=== PATIENT | female | born 1955 | race Caucasian/White ===

== ENCOUNTER 2017-02-23 15:03 | Outpatient (CLI) | payer OTHER ==
--- NOTE | 2017-02-24 09:30 | MRI ---
MRI LEFT KNEE WITHOUT CONTRAST: HISTORY: M25.562. Meniscus tear. COMPARISON: None. FINDINGS: Medial Meniscus: There is undersurface flap tear of the body and posterior horn medial meniscus exte nding to the root attachment. There is 2 mm gutter extrusion of the flap fragment. Lateral Meniscus: Intact. The ACL, PCL, MCL, LCL are all intact. Extensor Mechanism: Quadriceps tendon, patella, and patellar tendon are all intact. Cartilage and Patellar Femoral Compartment: Intact. Medial Compartment: Minimal chondral loss of weightbearing surface medial femoral condyle. Lateral Compartment: Intact. Bones: No fracture. No malalignment. No stress edema. Small medial compartment osteophytes. Muscles: Muscle signal and bulk is normal. There is trace fluid within the pes anserine bursa. IMPRESSION: 1. Undersurface flap tear finding of posterior horn medial meniscus extensor radial attachment with 2 mm medial gutter extrusion of the flap fragment. 2. Mild pes anserine bursitis. 3. 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 POS: [facility]
== END 2017-02-23 15:04 | disposition home or self-care (01) ==
LOC: SCSMRI 15:03
PROVIDERS: ATTEND Orthopaedic Surgery
DX: S83.242A Other tear of medial meniscus, current injury, left knee, initial encounter (principal); M70.52 Other bursitis of knee, left knee; M94.262 Chondromalacia, left knee

== ENCOUNTER 2017-12-14 17:00 | Outpatient (CLI) | payer OTHER | END 2017-12-14 17:01 | disposition home or self-care (01) | LOC: SLEEPLAB 17:00 | PROVIDERS: ATTEND Internal Medicine | DX: G47.33 Obstructive sleep apnea (adult) (pediatric) (principal); G47.31 Primary central sleep apnea; R53.83 Other fatigue; Z68.30 Body mass index [BMI] 30.0-30.9, adult | CPT/HCPCS: 95806 ==

== ENCOUNTER 2018-01-24 20:30 | Outpatient (CLI) | payer OTHER | END 2018-01-24 20:31 | disposition home or self-care (01) | LOC: SLEEPLAB 20:30 | PROVIDERS: ATTEND Internal Medicine | DX: G47.33 Obstructive sleep apnea (adult) (pediatric) (principal); G47.10 Hypersomnia, unspecified; R06.83 Snoring; E66.9 Obesity, unspecified; Z68.30 Body mass index [BMI] 30.0-30.9, adult | CPT/HCPCS: 95811 ==

== ENCOUNTER 2018-01-25 13:34 | Outpatient (CLI) | payer OTHER ==
[2018-01-25 14:30] LABS: #Eosinphils 0.1 thou/uL (0.0-0.7); #Lymphocytes 2.3 thou/uL (1.20-3.40); #Monocytes 0.5 thou/uL (0.11-0.59); #Neutrophils 3.4 thou/uL (1.40-6.50); %Basophils 0.4 % (0.0-1.0); %Eosinophils 2.2 % (0.0-10.0); %Lymphocytes 36.3 % (21.0-51.0); %Monocytes 7.4 % (0.0-10.0); %Neutrophils 53.6 % (42.0-75.0); Hemoglobin 12.9 g/dL (12.0-16.0); Mean Corpuscular HGB CONC 33.5 g/dL (32.0-36.0); Mean Corpuscular Hemoglobin 28.6 pg (27.0-31.0); Mean Corpuscular Volume 85.3 fL (78.0-98.0); Mean Platelet Volume 6.8 fL (7.4-10.4); Platelet Count 253 thou/uL (130-400); Red Blood Cell (RBC) Count 4.52 mill/uL (4.20-5.40); White Blood Cell (WBC) Count 6.3 thou/uL (4.8-10.8)
[2018-01-25 14:46] LABS: Anion Gap 14 mmol/L (10-20); BUN (Urea Nitrogen) 11 mg/dL (9.8-20.1); Calc. Creatinine Clearance 0 mL/min (70-130); Calcium 9.3 mg/dL (7.8-10.44); Carbon Dioxide 26 mmol/L (23-31); Chloride 101 mmol/L (98-107); Estimated GFR-MDRD 69; Glucose 162 mg/dL (80-115); Potassium 3.8 mmol/L (3.5-5.1); Sodium 137 mmol/L (136-145)
--- NOTE | 2018-01-25 17:30 | EKG ---
Test Reason : Blood Pressure : / mmHG Vent. Rate : 068 BPM Atrial Rate : 068 BPM P-R Int : 182 ms QRS Dur : 080 ms QT Int : 454 ms P-R-T Axes : 065 038 072 degrees QTc Int : 482 ms Normal sinus rhythm Normal ECG When compared with ECG of 14-AUG-2016 11:17, No significant change was found Confirmed by MILAGROS CARPENTER ([id number]) on 01/25/2018 5:30:14 PM Referred By: IMTIAZ Confirmed By:MILAGROS CARPENTER
== END 2018-01-25 13:35 | disposition home or self-care (01) ==
LOC: LABBT 13:34
PROVIDERS: ATTEND Orthopaedic Surgery
DX: Z01.818 Encounter for other preprocedural examination (principal); S83.242A Other tear of medial meniscus, current injury, left knee, initial encounter
CPT/HCPCS: 80048; 85025; 93005; 93010

== ENCOUNTER 2018-01-27 08:03 | Day surgery (SDC) | payer OTHER ==
[2018-01-25 14:20] VITALS: BMI 29.2
--- NOTE | 2018-01-26 14:44 | HP ---
HISTORY OF PRESENT ILLNESS: The patient is a 62-year-old female, who has a several month history of left knee pain and sensation of instability without specific injury. she has had persistent symptoms despite rest, restriction of activities, and use of inflammatory medications. She thinks her symptoms are identical to those she had on her right knee prior to arthroscopic meniscectomy several months ago. PAST MEDICAL HISTORY: Past history is as noted above. She is otherwise in good health. She has a history of anxiety, hypothyroidism, type 2 diabetes, and reflux. CURRENT MEDICATIONS: Her current medications include 1. Celexa. 2. Nexium. 3. Fluticasone. 4. L-thyroxine. 5. Valtrex. 6. Zetia. 7. Tradjenta. ALLERGIES: SHE IS ALLERGIC TO TYLENOL NO. 3 AND SIMVASTATIN. FAMILY HISTORY: Otherwise unremarkable. SOCIAL HISTORY: Otherwise unremarkable. REVIEW OF SYSTEMS: Otherwise unremarkable. PHYSICAL EXAMINATION: GENERAL: Reveals a healthy female. HEENT: Unremarkable. NECK: Supple. CHEST: Clear. HEART: Regular rate and rhythm. ABDOMEN: Soft and nontender. PELVIC: Deferred. RECTAL: Deferred. BREASTS: Deferred. EXTREMITIES: Pertinent findings are related to the left knee. There is no definite effusion. There is normal alignment. There is tenderness over the medial joint line. Range of motion is 3 to 115 degrees. There is pain with further flexion. There is pain with Leidy maneuver. NEUROVASCULAR: Intact. DIAGNOSTIC STUDIES: X-rays of the left knee reveals slight medial joint space narrowing. MRI scan of the left knee reveals an undersurface flap tear of the posterior horn of the medial meniscus and mild degenerative changes. IMPRESSION: Internal derangement of left knee with medial meniscal tear and possible component of degenerative joint disease. PLAN: Plan is arthroscopy of the left knee with partial medial meniscectomy and/or debridement and shaving. The nature of the surgery and length of recovery and potential complications such as infection, loss of motion, incomplete relief, thromboembolic phenomenon, neurovascular injury, recurrent tear, posttraumatic and need for additional treatment and repeat surgery have been discussed in detail. Job ID: [id number]
[2018-01-27] MEDS ORDERED: CEFAZOLIN 2 GM/50 ML BAG ONE (10:12)
[2018-01-27] MEDS ORDERED: Bupivacaine HCl 0.5%/Epinephrine 1:200,000/PF 30 ml Vial ONE (11:13)
[2018-01-27] MEDS ORDERED: Fentanyl 100 MCG/2 ML VIAL ONE (11:25)
[2018-01-27] MEDS ORDERED: Morphine 2 MG/ML SYRINGE ONE ×2 (12:54→13:05)
[2018-01-27] MEDS ORDERED: traMADol HCl 50 MG TAB ONE (13:38)
--- NOTE | 2018-01-27 15:46 | OP ---
DATE OF PROCEDURE: 01/27/2018 ANESTHESIA: General. PREOPERATIVE DIAGNOSES: Medial meniscal tear and degenerative joint disease, left knee. POSTOPERATIVE DIAGNOSES: Medial meniscal tear and degenerative joint disease, left knee. PROCEDURES PERFORMED: Arthroscopy, left knee and partial medial meniscectomy. OPERATIVE FINDINGS: Examination under anesthesia revealed the knee to be stable. At arthroscopy, there was mild grade 1 and very early grade 2 changes of the patella, no areas needed shaving. There was a complex tear of the posterior horn of the medial meniscus with a large undersurface flap component. There was diffuse grade 2 and early grade 3 changes of the weightbearing surface of the medial femoral condyle. No evidence of exposed bone. ACL was intact. Lateral compartment was normal. There was some fraying of the free border of the lateral meniscus. The body of the meniscus is intact and I elected to leave this alone. DESCRIPTION OF PROCEDURE: After satisfactory anesthesia was induced in supine position, the patient was placed on leg espinosa and prepped and draped in routine manner. The left leg was elevated and exsanguinated with an Esmarch bandage and the tourniquet inflated to 300 mmHg. Alexus arthroscope was introduced into the anterolateral portal and probed through the anteromedial portal and inflow and outflow accomplished through the scope using a Startlocal arthroscopy and pump. Arthroscopy was carried out and the above findings were noted. All findings were documented with the video printer and hard copies were made. The posterior horn of the medial meniscus was debrided with the use of basket forceps and motorized shaver, and the remaining rim balanced and probed and found to be stable. There was still intact rim of 3 to 4 mm. A portion of medial femoral condyle was debrided with a motorized shaver of all exposed fibrillated cartilage. The scope was then introduced into the anteromedial portal. All compartments were visualized and no additional pathology found. The knee was copiously irrigated through the scope and all instruments were then withdrawn. 20 mL of 0.5% Marcaine with epinephrine was instilled into the knee joint and additional 10 mL injected about the portal sites. Portal sites were closed with 3-0 nylon and a sterile bulky compressive dressing was applied. The tourniquet deflated after 19 minutes. The foot promptly pinked up, and the patient was awakened and taken from the operating room in stable condition. There were no apparent intraoperative complications. The estimated blood loss was negligible. The patient will be discharged home in satisfactory condition to use ice, elevations, use of crutches. Home exercise program with the Physical Therapy Department. She was given written wound care instructions and has tramadol at home for pain. She will be rechecked in my office in approximately 2 weeks or sooner if any problems prior to that time. Job ID: [id number]
== END 2018-01-27 14:45 ==
LOC: SDC 08:03
PROVIDERS: ATTEND Orthopaedic Surgery
PROC: 0SBD4ZZ Excision of Left Knee Joint, Percutaneous Endoscopic Approach (ICD-10-PCS; principal; 2018-01-27)
DX: S83.232A Complex tear of medial meniscus, current injury, left knee, initial encounter (principal); M17.12 Unilateral primary osteoarthritis, left knee; F41.9 Anxiety disorder, unspecified; E03.9 Hypothyroidism, unspecified; E11.9 Type 2 diabetes mellitus without complications; K21.9 Gastro-esophageal reflux disease without esophagitis; E78.5 Hyperlipidemia, unspecified; Z88.5 Allergy status to narcotic agent; Z88.8 Allergy status to other drugs, medicaments and biological substances; Z79.84 Long term (current) use of oral hypoglycemic drugs; Z79.899 Other long term (current) drug therapy
CPT/HCPCS: 36416; 96374; G8978-GP-CJ; G8979-GP-CJ; G8980-GP-CJ; J0670; J2270; J3010; J3490